=== PATIENT | male | born 1995 | race Caucasian/White ===

== ENCOUNTER 2017-07-22 18:47 | Emergency (ER) | payer OTHER ==
[2017-07-22] MEDS ORDERED: IPRATROPIUM/ALBUTEROL 3 ML NEB INH STA (19:00)
--- NOTE | 2017-07-22 19:02 | ED Physician Documentation ---
PD HPI DYSPNEA - Stated complaint Stated Complaint: SOA/COUGH - Chief complaint Chief Complaint: Resp - History obtained from History obtained from: Patient - History of Present Illness Timing - onset: Other (22-year-old with childhood asthma but no other serious medical issues presents with 1 day of cough, nasal drainage, shortness of breath and wheezing. No recent travel or sick contacts.) Review of Systems Constitutional: reports: Fatigue. denies: Fever, Chills Nose: reports: Rhinorrhea / runny nose Throat: denies: Sore throat Cardiac: denies: Chest pain / pressure Respiratory: reports: Dyspnea, Cough GI: denies: Abdominal Pain PD PAST MEDICAL HISTORY - Past Medical History Past Medical History: No Respiratory: Asthma - Past Surgical History Past Surgical History: No - Present Medications Home Medications: Ambulatory Orders Medication Instructions Recorded Confirmed Albuterol Sulfate [Proventil Hfa 1 - 2 puffs IH Q4H PRN #1 07/22/17 Inhaler] [email or web address] predniSONE [Deltasone] 60 mg PO DAILY 5 Days 07/22/17 - Allergies Allergies/Adverse Reactions: Allergies Allergy/AdvReac Type Severity Reaction Status Date / Time No Known Drug Allergies Allergy Verified 07/22/17 18:52 - Social History Does the pt smoke?: No Smoking Status: Former smoker Does the pt drink ETOH?: No Does the pt have substance abuse?: No - Immunizations Immunizations are current?: Yes - POLST Patient has POLST: No PD ED PE NORMAL - Vitals Vital signs reviewed: Yes - General General: Alert and oriented X 3, No acute distress - HEENT HEENT: Ears normal, Pharynx benign - Neck Neck: Supple, no meningeal sign, No bony TTP - Cardiac Cardiac: RRR, No murmur - Respiratory Respiratory: No respiratory distress, Other (Tight and wheezy throughout with moderate air motion) - Abdomen Abdomen: Non tender - Derm Derm: No rash - Neuro Neuro: Alert and oriented X 3, Normal speech - Psych Psych: Normal mood, Normal affect Results - Vitals Vitals: Vital Signs - 24 hr 07/22/17 07/22/17 07/22/17 18:51 19:10 19:21 Temperature 36.5 C Heart Rate 96 93 76 Respiratory 22 18 15 Rate Blood Pressure 143/85 H 156/86 H O2 Saturation 96 98 07/22/17 19:46 Temperature Heart Rate 110 H Respiratory 15 Rate Blood Pressure 151/103 H O2 Saturation 95 Oxygen O2 Source Room air - Rads (name of study) 2v chest Radiology: EMP read contemporaneously (JASPER) PD MEDICAL DECISION MAKING - ED course ED course: Had significant symptomatically improvement after the administration of a DuoNeb here and lungs were clear at that point. I do not see any evidence of pneumonia on chest x-ray. Departure - Departure Disposition: Home, Self Care Clinical Impression: Bronchitis Condition: Good Record reviewed to determine appropriate education?: Yes Instructions: ED Bronchitis Asthmatic Prescriptions: predniSONE [Deltasone] 60 mg PO DAILY 5 Days Albuterol Sulfate [Proventil Hfa Inhaler] 1 - 2 puffs IH Q4H PRN #1 [email or web address] PRN Reason: Cough Comments: Call your doctor to arrange a follow-up appointment, make the next available appointment. In the interim, return anytime if worse or if new symptoms develop. Your blood pressure was elevated today on check into the emergency department. This does not mean that you have hypertension, it is a common phenomenon to come to the emergency department and have elevated blood pressure. I recommend that she see her primary care physician within the week to have it rechecked when you are feeling better.
[2017-07-22] MEDS ORDERED: IPRATROPIUM/ALBUTEROL 3 ML NEB INH ONE (19:07)
[2017-07-22] MEDS ORDERED: predniSONE 20 MG TABLET PO STA (19:35)
[2017-07-22] MEDS ORDERED: CHERRY SYRUP 10 ML UDC PO ONE (19:44)
[2017-07-22] MEDS ORDERED: DEXAMETHASONE 10 MG/ML VIAL ONE (19:44)
--- NOTE | 2017-07-22 19:44 | XRAY Preliminary Report ---
Exam: XR Chest 2 View PA/LAT IMPRESSION: Normal 2-view chest radiography. [facility] SITE ID: [id number]
[2017-07-22 19:47] VITALS: BP 151/103
[2017-07-22] MEDS ORDERED: predniSONE 20 MG TABLET ONE (19:47)
--- NOTE | 2017-07-22 19:47 | XRAY Report ---
EXAM: CHEST RADIOGRAPHY EXAM DATE: 07/22/2017 07:29 PM. CLINICAL HISTORY: Dyspnea, cough, wheeze. COMPARISON: None. TECHNIQUE: 2 views. FINDINGS: Lungs/Pleura: No focal opacities evident. No pleural effusion. No pneumothorax. Normal volumes. Mediastinum: Heart and mediastinal contours are unremarkable. Other: None. IMPRESSION: Normal 2-view chest radiography. [facility] Referring Provider Line: [phone] SITE ID: [id number]
== END 2017-07-22 19:45 | disposition home or self-care (01) ==
LOC: ED 18:47
DX: J40 Bronchitis, not specified as acute or chronic (principal); R03.0 Elevated blood-pressure reading, without diagnosis of hypertension; Z87.891 Personal history of nicotine dependence
CPT/HCPCS: 71020; 94640; 99283; 99284; J7512; J7620